=== PATIENT | male | born 1980 | race Caucasian/White ===

== ENCOUNTER → 2021-02-27 | Outpatient (CLI) | payer BC | END | disposition home or self-care (01) | LOC: LAB SHORT 06:31 → LAB 06:31 | DX: J02.9 Acute pharyngitis, unspecified (principal) | CPT/HCPCS: 87081 ==

== ENCOUNTER 2022-04-08 09:21 | Day surgery (SDC) | payer OTHER ==
[~2022-04-08] VITALS: Ht 170.2 cm; Wt 96.7 kg
[~2022-04-08 09:21] MED LIST: TESTERONE INJ
--- NOTE | 2022-04-08 10:50 | NUR ---
Ambulatory in Day Surgery History, Chart, Medications and Allergies reviewed before start of procedure. Lungs clear T/O to Auscultation. Patient confirms NPO status and agrees with scheduled surgery. Patient States Post-Procedure ride home has been arranged.
--- NOTE | 2022-04-08 12:05 | NUR ---
04/08/22 1205 Azra Markham History, Chart, Medications and Allergies reviewed before start of procedure. MONITOR INTACT WITH CONTINUOUS PULSE OXIMETRY AND INTERMITTENT BP. 3-LEAD EKG REVIEWED WITH PHYSICIAN PRIOR TO START OF PROCEDURE. O2 VIA N/C INTACT THROUGHOUT SEDATION/PROCEDURE. LIDOCAINE SPRAY TO BACK OF THROAT PRIOR TO PROCEDURE. Bite Block Placed PATIENT DETERMINED TO BE ASA APPROPRIATE FOR PROPOFOL SEDATION PRIOR TO START OF PROCEDURE BY DR. SMALLS
--- NOTE | 2022-04-08 12:35 | NUR ---
PT IN NO ACUTE DISTRESS. REVIEWDED DISCHARGE INSTRUCTIONS. RIDE HOME. LIQUID DIET TODAY. Discharged via wheelchair to private car for ride home.
== END 2022-04-08 23:00 | disposition home or self-care (01) ==
LOC: ORSCMMR 09:21 → ORD 09:21 → ORSCMMR 09:24 → ORD 10:30
PROVIDERS: Student in an Organized Health Care Education/Training Program
PROC: 0DB68ZX Excision of Stomach, Via Natural or Artificial Opening Endoscopic, Diagnostic (ICD-10-PCS; principal; 2022-04-08 10:30)
PROC: 0DB98ZX Excision of Duodenum, Via Natural or Artificial Opening Endoscopic, Diagnostic (ICD-10-PCS; principal; 2022-04-08 10:30)
PROC: 0DB58ZX Excision of Esophagus, Via Natural or Artificial Opening Endoscopic, Diagnostic (ICD-10-PCS; principal; 2022-04-08 10:30)
PROC: 0D748ZZ Dilation of Esophagogastric Junction, Via Natural or Artificial Opening Endoscopic (ICD-10-PCS; principal; 2022-04-08 10:30)
PROC: 0D738ZZ Dilation of Lower Esophagus, Via Natural or Artificial Opening Endoscopic (ICD-10-PCS; principal; 2022-04-08 10:30)
DX: R13.10 Dysphagia, unspecified (principal); K29.80 Duodenitis without bleeding; K20.90 Esophagitis, unspecified without bleeding; K22.2 Esophageal obstruction; K44.9 Diaphragmatic hernia without obstruction or gangrene; E78.5 Hyperlipidemia, unspecified; Z79.899 Other long term (current) drug therapy; E66.9 Obesity, unspecified; Z68.34 Body mass index [BMI] 34.0-34.9, adult
CPT/HCPCS: 88305; C1726; J2250; J2704; J7120